=== PATIENT | male | born 2000 | race Caucasian/White ===

== ENCOUNTER 2022-02-19 13:07 | Outpatient (REF) | payer BC, SELFPAY ==
[2022-02-19 14:02] LABS: COVID-19 Test Negative (Negative); IDNOW Serial# 16C4AD1C
== END 2022-02-19 13:08 | disposition home or self-care (01) ==
LOC: HO.LAB 13:07
PROVIDERS: Visit Provider Internal Medicine
DX: Z20.822 Contact with and (suspected) exposure to COVID-19 (principal)
CPT/HCPCS: 87635; C9803